=== PATIENT | female | born 1980 | race Caucasian/White ===

== ENCOUNTER 2019-01-20 19:55 | Emergency (ER) | payer OTHER ==
[2019-01-20] MEDS ORDERED: predniSONE 20 MG TAB ONE (20:50)
== END 2019-01-20 20:57 | disposition home or self-care (01) ==
LOC: NAV ERS 19:55
DX: J20.9 Acute bronchitis, unspecified (principal); F31.9 Bipolar disorder, unspecified; F41.9 Anxiety disorder, unspecified; F17.210 Nicotine dependence, cigarettes, uncomplicated; Z79.51 Long term (current) use of inhaled steroids
CPT/HCPCS: 99283; J7512